=== PATIENT | female | born 1950 | race Caucasian/White ===

== ENCOUNTER 2020-07-14 16:44 | Emergency (ER) | payer OTHER, BC, SELFPAY ==
[~2020-07-14] VITALS: Ht 180.3 cm; Wt 77.1 kg
[2020-07-14 16:45] VITALS: BP 171/95; Ht 180.3 cm; Wt 77.1 kg
== END 2020-07-14 18:19 | disposition home or self-care (01) ==
LOC: ED 16:44
DX: J44.1 Chronic obstructive pulmonary disease with (acute) exacerbation (principal); Z20.828 Contact with and (suspected) exposure to other viral communicable diseases
CPT/HCPCS: J1100; U0003